=== PATIENT | female | born 1940 | race Asian ===

== ENCOUNTER → 2016-05-16 | Outpatient (CLI) | payer MEDICAID ==
[~2016-05-16] MED LIST: ASPIRIN E.C. 8181 MG PO; ATACAND 16M16 MG/TAB PO; B COMPLEX1 TA4 PO; BUFFERED ASPIR325 M2 PO; CATAPRES 0.1MG0.1 MG PO; CORDARONE200 MG/TAB PO; ELIQUIS 2.5 PO; HCTZ 25MG TAB25 MG PO; HCTZ12.5TAB PO; LASIX 40MG TABL40 MG PO; METHOTREXA2.5 MG/TAB PO; PRADAXA75 MG PO; VALIUM 2MG T2 MG/TAB PO; VALIUM 5MG T5 MG/TAB PO; VITAMIN D 50,1.25 MG PO; VITAMIN D31000 I1; XARELTO20 MG PO; ZEBETA 5MG5 MG PO; ZEBETA10 MG PO; ZOCOR 10MG10 MG PO
== END ==
LOC: COL.RAD 05-14 06:45
DX: Z53.9 Procedure and treatment not carried out, unspecified reason (principal)

== ENCOUNTER → 2016-05-23 | Outpatient (CLI) | payer MEDICAID ==
[~2016-05-23] VITALS: Ht 167.6 cm; Wt 84.5 kg
[2016-05-23 10:26] VITALS: BP 157/85; PULSE 61
[2016-05-23 11:15] VITALS: BP 163/79; PULSE 60
== END ==
LOC: COL.RAD 09:45
DX: D34 Benign neoplasm of thyroid gland (principal)
CPT/HCPCS: 13756

== ENCOUNTER 2017-01-05 22:02 | Observation (INO) | payer MEDICAID ==
[~2017-01-05] VITALS: Ht 172.7 cm; Wt 90.5 kg
[~2017-01-05 22:02] MED LIST changes: -B COMPLEX1 TA4 PO; +MULTI VITAMINS1 TAB PO
[2017-01-05] MEDS ORDERED: GLUCOSAMINE SU500 M2 PO (22:43)
[2017-01-05] MEDS ORDERED: CRESTOR 10MG10 MG PO (22:45)
[2017-01-05] MEDS ORDERED: ATACAND HCT 161 TAB PO (22:46)
[2017-01-05] MEDS ORDERED: NATURE'S BLE1000 MCG PO (22:47)
[2017-01-05] MEDS ORDERED: PACERONE100 MG PO (22:47)
[2017-01-05] MEDS ORDERED: IRON 27 MG PO (22:47)
[2017-01-05 23:16] LABS: INFLUENZA B NEGATIVE
[2017-01-05 23:22] LABS: BASO % 0.1 % (0.0-2.0); EOS % 0.3 % (0-4.0); GRAN # 7.4 (1.4-6.5); HEMATOCRIT 39.2 % (37.0-47.0); HEMOGLOBIN 12.7 g/dl (12.5-16.0); LYMPH # 1.4 (1.2-3.4); LYMPH % 15.2 % (20.0-51.0); MEAN CELL VOLUME 79 fl (80.0-100.0); MEAN CORPUSCULAR HEMOGLOBIN 26 pg (27.0-31.0); MEAN CORPUSCULAR HGB CONC 32 g/dl (33.0-37.0); MEAN PLATELET VOLUME 11.5 fl (7.4-10.4); MONO # 0.5 (0.1-0.6); MONO % 5.2 % (1.7-9.3); PLATELET COUNT 161 K/mm3 (130-400); RED BLOOD COUNT 4.95 M/mm3 (4.10-5.30); REDCELL DISTRIBUTION WIDTH-CV 15.5 % (11.5-14.5); WHITE BLOOD COUNT 9.4 K/mm3 (4.8-10.8)
[2017-01-05 23:37] LABS: PH 7 (5-8); SQUAMOUS EPITHELIAL 0-2 /hpf; URINE APPEARANCE Clear; URINE BACTERIA None Seen /hpf; URINE BILIRUBIN Negative (NEGATIVE); URINE BLOOD 1+ (NEGATIVE); URINE COLOR Colorless; URINE GLUCOSE Negative (NEGATIVE); URINE KETONE Trace (NEGATIVE); URINE UROBILINOGEN Negative (NEGATIVE); URINE WBC 0-2 /hpf
[2017-01-05 23:40] LABS: ALBUMIN 4.1 gm/dL (3.5-5.0); C-REACTIVE PROTEIN 4.4 mg/dL (0.0-0.9); CALCIUM 9.1 mg/dL (8.4-10.2); CREATININE, serum 0.8 mg/dL (0.52-1.25); POTASSIUM 3.4 mmol/L (3.4-5.0); TOTAL PROTEIN 7.8 gm/dL (6.4-8.2)
[2017-01-06 01:13] VITALS: BP 112/57; PULSE 94; TEMP 97.6
[2017-01-06] MEDS ORDERED: AMOXICILLIN 50500 MG PO (01:32)
[2017-01-06 03:36] VITALS: BP 110/53; PULSE 57; TEMP 97.3
[2017-01-06 08:26] VITALS: BP 132/43; PULSE 55; TEMP 98
[2017-01-06 11:21] VITALS: BP 103/48; PULSE 56; TEMP 98.5
== END 2017-01-06 12:28 | disposition home or self-care (01) ==
LOC: COL.ER 22:02 → MEDICAL 01-06 00:11
PROVIDERS: Family Medicine
DX: T36.0X5A Adverse effect of penicillins, initial encounter (principal); R11.2 Nausea with vomiting, unspecified; K04.7 Periapical abscess without sinus; I10 Essential (primary) hypertension; I48.2 Chronic atrial fibrillation; Z79.01 Long term (current) use of anticoagulants; E78.5 Hyperlipidemia, unspecified; R53.1 Weakness
CPT/HCPCS: G0378; G8987-GO; G8988-GO; J2405; J2550; J7030

== ENCOUNTER 2017-07-14 19:40 | Inpatient (IN) | payer MEDICAID ==
[~2017-07-14] VITALS: Ht 165.1 cm; Wt 86.5 kg
[~2017-07-14 19:40] MED LIST changes: +AMOXICILLIN 50500 MG PO; +ATACAND HCT 161 TAB PO; +CRESTOR 10MG10 MG PO; +GLUCOSAMINE SU500 M2 PO; +IRON 27 MG PO; +NATURE'S BLE1000 MCG PO; +PACERONE100 MG PO
[2017-07-15] VITALS (117 sets, daily range): BP systolic 125–149; BP diastolic 82–102; PULSE 70–110; TEMP 98.3–98.7; O2SAT 91–98
[2017-07-15 08:41] LABS: CALCIUM 9.5 mg/dL (8.4-10.2); CREATININE, serum 0.87 mg/dL (0.52-1.25); MAGNESIUM 1.7 mg/dL (1.6-2.3); POTASSIUM 3.9 mmol/L (3.4-5.0)
[2017-07-15] MEDS ORDERED: ATACAND 16M16 MG/TAB PO (09:22)
[2017-07-15] MEDS ORDERED: CARTIA XT240 MG PO (09:22)
[2017-07-15 22:04] LABS: CALCIUM 9.2 mg/dL (8.4-10.2); CREATININE, serum 1.01 mg/dL (0.52-1.25); MAGNESIUM 1.9 mg/dL (1.6-2.3); POTASSIUM 4.1 mmol/L (3.4-5.0)
[2017-07-16] VITALS: BP 141/98; PULSE 91; TEMP 99.5
[2017-07-16 04:00] VITALS: BP 164/105; PULSE 89; TEMP 98.8
[2017-07-16 06:21] LABS: CALCIUM 9.3 mg/dL (8.4-10.2); CREATININE, serum 0.96 mg/dL (0.52-1.25); MAGNESIUM 1.9 mg/dL (1.6-2.3); POTASSIUM 4.3 mmol/L (3.4-5.0)
[2017-07-16 08:00] VITALS: BP 153/91; PULSE 90; TEMP 97.8
[2017-07-16 11:54] VITALS: BP 162/105; PULSE 90; TEMP 98.2
[2017-07-16 15:44] VITALS: BP 154/88; PULSE 90; TEMP 98.4
[2017-07-16 19:30] VITALS: BP 168/90; PULSE 97
[2017-07-17 00:34] VITALS: BP 158/88; PULSE 90; TEMP 97.3
[2017-07-17 03:38] VITALS: BP 169/89; PULSE 85; TEMP 97.4
[2017-07-17 07:00] LABS: CALCIUM 9.4 mg/dL (8.4-10.2); CREATININE, serum 0.85 mg/dL (0.52-1.25); MAGNESIUM 1.8 mg/dL (1.6-2.3); POTASSIUM 3.8 mmol/L (3.4-5.0)
[2017-07-17 08:11] VITALS: BP 158/88; PULSE 86; TEMP 98
[2017-07-17 11:10] VITALS: BP 157/82; PULSE 93; TEMP 98.3
[2017-07-17 15:56] VITALS: BP 140/77; PULSE 92; TEMP 98.6
[2017-07-17 19:58] VITALS: BP 152/83; PULSE 97; TEMP 98.4
[2017-07-18 00:19] VITALS: BP 148/76; PULSE 85; TEMP 98.8
[2017-07-18 03:42] VITALS: BP 154/83; PULSE 82; TEMP 97.8
[2017-07-18 07:47] VITALS: BP 165/94; PULSE 93; TEMP 97.9
[2017-07-18 08:09] LABS: CALCIUM 9.6 mg/dL (8.4-10.2); CREATININE, serum 0.89 mg/dL (0.52-1.25); MAGNESIUM 1.8 mg/dL (1.6-2.3); POTASSIUM 4.2 mmol/L (3.4-5.0)
== END 2017-07-18 11:15 | disposition home or self-care (01) | DRG 310 ==
LOC: ICU 07-15 08:03 → MEDICAL 07-15 08:03
PROVIDERS: Internal Medicine Interventional Cardiology
DX: I48.91 Unspecified atrial fibrillation (principal); I10 Essential (primary) hypertension
CPT/HCPCS: J3475

== ENCOUNTER 2017-07-30 11:01 | Outpatient (CLI) | payer MEDICAID ==
[~2017-07-30] VITALS: Ht 165.2 cm; Wt 86.0 kg
[~2017-07-30 11:01] MED LIST changes: +CARTIA XT240 MG PO
[2017-07-30] MEDS ORDERED: TIKOSYN0.25 MG PO (11:59)
[2017-07-30 12:01] LABS: INR 1.8 (0.8-3.0); PROTHROMBIN TIME 21.5 SECONDS (9.7-12.8)
[2017-07-30 12:05] VITALS: BP 157/97; PULSE 98; TEMP 98.2
[2017-07-30 12:13] LABS: POTASSIUM 4.2 mmol/L (3.4-5.0)
[2017-07-30 12:48] LABS: THYROID STIMULATING HORMONE 0.571 uIU/mL (0.465-4.680)
[2017-07-30 13:00] VITALS: BP 138/74; PULSE 84
[2017-07-30 13:15] VITALS: BP 141/84; PULSE 84
[2017-07-30 13:30] VITALS: BP 144/86; PULSE 86
[2017-07-30 13:45] VITALS: BP 157/90; PULSE 86
== END 2017-07-30 14:00 | disposition home or self-care (01) ==
LOC: EUO 11:01
PROVIDERS: Internal Medicine Interventional Cardiology
DX: I48.3 Typical atrial flutter (principal); I48.91 Unspecified atrial fibrillation; Z90.710 Acquired absence of both cervix and uterus; J44.9 Chronic obstructive pulmonary disease, unspecified; E78.5 Hyperlipidemia, unspecified; I10 Essential (primary) hypertension
CPT/HCPCS: J0330; J2704

== ENCOUNTER 2019-08-01 12:26 | Emergency (ER) | payer MEDICAID ==
[~2019-08-01] VITALS: Ht 165.1 cm; Wt 82.7 kg
[~2019-08-01 12:26] MED LIST changes: +TIKOSYN0.25 MG PO
[2019-08-01 12:30] VITALS: TEMP 98.2
[2019-08-01] MEDS ORDERED: TOPROL XL 50MG50 MG PO (12:41)
[2019-08-01] MEDS ORDERED: LASIX 40MG TABL40 MG PO (12:41)
[2019-08-01] MEDS ORDERED: CRESTOR 10MG10 MG PO (12:42)
[2019-08-01 12:47] LABS: BASO % 0.2 % (0.0-2.0); EOS # 0.3 (0.0-0.7); EOS % 3.3 % (0-4.0); GRAN # 6.3 (1.4-6.5); GRAN % 64.6 % (42.2-75.2); HEMATOCRIT 41.6 % (37.0-47.0); HEMOGLOBIN 13.1 g/dl (12.5-16.0); LYMPH # 2.1 (1.2-3.4); LYMPH % 21.4 % (20.0-51.0); MEAN CELL VOLUME 81 fl (80.0-100.0); MEAN CORPUSCULAR HEMOGLOBIN 25 pg (27.0-31.0); MEAN CORPUSCULAR HGB CONC 32 g/dl (33.0-37.0); MEAN PLATELET VOLUME 11.4 fl (7.4-10.4); PLATELET COUNT 193 K/mm3 (130-400); RED BLOOD COUNT 5.17 M/mm3 (4.10-5.30); REDCELL DISTRIBUTION WIDTH-CV 15.8 % (11.5-14.5)
[2019-08-01 13:02] LABS: ALANINE AMINOTRANSFERASE 20 U/L (4-34); ALBUMIN 4.3 gm/dL (3.5-5.0); ALKALINE PHOSPHATASE 107 U/L (50-136); ANION GAP 10 mmol/L (7-16); AST,SGOT 30 U/L (15-37); BILIRUBIN,TOTAL 0.6 mg/dL (0.0-1.0); BLOOD UREA NITROGEN 13 mg/dL (7-17); C-REACTIVE PROTEIN 0.7 mg/dL (0.0-0.9); CALCIUM 9.4 mg/dL (8.4-10.2); CARBON DIOXIDE 25 mmol/L (22-30); CHLORIDE 97 mmol/L (98-107); CREATININE, serum 0.63 (0.52-1.25); GLUCOSE 117 mg/dL (74-106); POTASSIUM 3.9 mmol/L (3.4-5.0); SODIUM 132 mmol/L (137-145); TOTAL PROTEIN 8.1 gm/dL (6.4-8.2)
[2019-08-01 13:13] LABS: TROPONIN-I < 0.012 ng/mL (0.000-0.035)
[2019-08-01 14:47] LABS: INR 1.4 (0.8-3.0); PROTHROMBIN TIME 16.9 SECONDS (9.7-12.8)
[2019-08-01] MEDS ORDERED: APRESOLINE 25MG25 MG PO (16:06)
[2019-08-01 16:45] VITALS: BP 133/67; PULSE 57
[2019-08-01] MEDS ORDERED: PHENERGAN 25 TA25 MG PO (17:32)
== END 2019-08-01 17:40 | disposition home or self-care (01) ==
LOC: COL.ER 12:26
PROVIDERS: Emergency Medicine
DX: I10 Essential (primary) hypertension (principal); I48.91 Unspecified atrial fibrillation; E78.00 Pure hypercholesterolemia, unspecified; Z79.01 Long term (current) use of anticoagulants
CPT/HCPCS: J2060; J2405; J7050

== ENCOUNTER 2020-06-04 12:09 | Emergency (ER) | payer MEDICAID ==
[~2020-06-04] VITALS: Ht 165.1 cm; Wt 84.5 kg
[~2020-06-04 12:09] MED LIST changes: +APRESOLINE 25MG25 MG PO; +PHENERGAN 25 TA25 MG PO; +TOPROL XL 50MG50 MG PO
[2020-06-04 12:27] VITALS: TEMP 98.2
[2020-06-04 13:43] LABS: BASO % 0.2 % (0.0-2.0); EOS % 0.1 % (0-4.0); GRAN # 7.6 (1.4-6.5); GRAN % 78.1 % (42.2-75.2); HEMATOCRIT 43.1 % (37.0-47.0); HEMOGLOBIN 13.5 g/dl (12.5-16.0); LYMPH # 1.4 (1.2-3.4); MEAN CELL VOLUME 80 fl (80.0-100.0); MEAN CORPUSCULAR HEMOGLOBIN 25 pg (27.0-31.0); MEAN CORPUSCULAR HGB CONC 31 g/dl (33.0-37.0); MEAN PLATELET VOLUME 12.5 fl (7.4-10.4); MONO # 0.7 (0.1-0.6); PLATELET COUNT 182 K/mm3 (130-400); RED BLOOD COUNT 5.36 M/mm3 (4.10-5.30); REDCELL DISTRIBUTION WIDTH-CV 15.9 % (11.5-14.5)
[2020-06-04 13:53] LABS: ALBUMIN 4.1 gm/dL (3.5-5.0); BILIRUBIN,TOTAL 0.9 mg/dL (0.0-1.0); CALCIUM 9.4 mg/dL (8.4-10.2); CREATININE, serum 0.76 (0.52-1.25); POTASSIUM 3.9 mmol/L (3.4-5.0); TOTAL PROTEIN 7.9 gm/dL (6.4-8.2)
[2020-06-04] MEDS ORDERED: ZOVIRAX5% TP (14:44)
[2020-06-04 15:08] LABS: COLLECTION METHOD CLEAN CATCH
[2020-06-04 15:28] LABS: MUCOUS Present /lpf; PH 6 (5-8); SQUAMOUS EPITHELIAL 0-2 /hpf; URINE APPEARANCE Clear; URINE BACTERIA None Seen /hpf; URINE BILIRUBIN Negative (NEGATIVE); URINE BLOOD 1+ (NEGATIVE); URINE COLOR Yellow; URINE GLUCOSE Negative (NEGATIVE); URINE KETONE Negative (NEGATIVE); URINE LEUKOCYTE ESTERASE Negative (NEGATIVE); URINE NITRATE Negative (NEGATIVE); URINE PROTEIN(semi-quant) 1+ (NEGATIVE); URINE UROBILINOGEN Negative (NEGATIVE)
[2020-06-04 15:48] VITALS: BP 146/78; PULSE 82
== END 2020-06-04 15:50 | disposition home or self-care (01) ==
LOC: COL.ER 12:09
PROVIDERS: Family Medicine
DX: B00.2 Herpesviral gingivostomatitis and pharyngotonsillitis (principal); I10 Essential (primary) hypertension; I48.91 Unspecified atrial fibrillation; Z20.822 Contact with and (suspected) exposure to COVID-19; Z90.710 Acquired absence of both cervix and uterus; Z98.61 Coronary angioplasty status; Z79.01 Long term (current) use of anticoagulants
CPT/HCPCS: J0780; J7030

== ENCOUNTER 2021-08-21 13:10 | Emergency (ER) | payer MEDICAID ==
[~2021-08-21] VITALS: Ht 165.1 cm; Wt 86.4 kg
[~2021-08-21 13:10] MED LIST changes: +ZOVIRAX5% TP
[2021-08-21 13:30] VITALS: TEMP 98.5
[2021-08-21 15:17] VITALS: BP 140/61; PULSE 80
== END 2021-08-21 15:20 | disposition home or self-care (01) ==
LOC: COL.ER 13:10
DX: S09.90XA Unspecified injury of head, initial encounter (principal); M54.2 Cervicalgia; S05.12XA Contusion of eyeball and orbital tissues, left eye, initial encounter; S05.11XA Contusion of eyeball and orbital tissues, right eye, initial encounter; I48.91 Unspecified atrial fibrillation; Z79.01 Long term (current) use of anticoagulants; W18.30XA Fall on same level, unspecified, initial encounter; W22.8XXA Striking against or struck by other objects, initial encounter

== ENCOUNTER 2023-02-13 22:47 | Emergency (ER) | payer MEDICAID ==
[~2023-02-13] VITALS: Ht 172.7 cm; Wt 88.6 kg
[2023-02-13 23:07] VITALS: TEMP 98
[2023-02-13 23:37] LABS: BASO % 0.3 % (0.0-2.0); EOS # 0.2 K/mm3 (0.0-0.7); EOS % 1.7 % (0.0-4.0); GRAN # 5.6 K/mm3 (1.4-6.5); GRAN % 63.3 % (42.2-75.2); HEMATOCRIT 41.5 % (37.0-47.0); LYMPH # 2.1 K/mm3 (1.2-3.4); LYMPH % 24.2 % (20.0-51.0); MEAN CELL VOLUME 76 fl (80.0-100.0); MEAN CORPUSCULAR HEMOGLOBIN 24 pg (27-31); MEAN CORPUSCULAR HGB CONC 31 g/dl (33.0-37.0); MEAN PLATELET VOLUME 11.6 fl (7.4-10.4); MONO # 0.9 K/mm3 (0.1-0.6); MONO % 10.3 % (1.7-9.3); PLATELET COUNT 178 K/mm3 (130-400); RED BLOOD COUNT 5.43 M/mm3 (4.10-5.30); REDCELL DISTRIBUTION WIDTH-CV 19.1 % (11.5-14.5)
[2023-02-13 23:52] LABS: ALBUMIN 3.4 gm/dL (3.4-4.8); BILIRUBIN,TOTAL 0.4 mg/dL (0.2-1.2); CALCIUM 9.5 mg/dL (8.4-10.2); CREATININE, serum 0.79 mg/dL (0.57-1.11); POTASSIUM 4.4 mmol/L (3.5-4.5); TOTAL PROTEIN 7.6 gm/dL (6.2-8.1)
[2023-02-14 00:29] VITALS: BP 165/77; PULSE 64
== END 2023-02-14 00:38 | disposition home or self-care (01) ==
LOC: COL.ER 22:47
PROVIDERS: Family Medicine
DX: I10 Essential (primary) hypertension (principal)

== ENCOUNTER 2023-03-13 17:33 | Emergency (ER) | payer MEDICAID ==
[~2023-03-13] VITALS: Ht 168 cm; Wt 81.8 kg
[2023-03-13 17:38] VITALS: TEMP 97.8
[2023-03-13 18:49] VITALS: BP 131/85; PULSE 74
== END 2023-03-13 18:49 | disposition home or self-care (01) ==
LOC: COL.ER 17:33
DX: I48.20 Chronic atrial fibrillation, unspecified (principal)

== ENCOUNTER 2023-05-15 21:19 | Emergency (ER) | payer MEDICAID ==
[~2023-05-15] VITALS: Ht 172.7 cm; Wt 84.1 kg
[2023-05-15 21:23] VITALS: TEMP 98.7
[2023-05-15 22:21] LABS: BASO % 0.4 % (0.0-2.0); EOS # 0.5 K/mm3 (0.0-0.7); EOS % 4.8 % (0.0-4.0); GRAN # 5.9 K/mm3 (1.4-6.5); GRAN % 54.9 % (42.2-75.2); HEMATOCRIT 42.4 % (37.0-47.0); HEMOGLOBIN 13.5 g/dl (12.5-16.0); LYMPH % 28.3 % (20.0-51.0); MEAN CELL VOLUME 80 fl (80.0-100.0); MEAN CORPUSCULAR HEMOGLOBIN 26 pg (27-31); MEAN CORPUSCULAR HGB CONC 32 g/dl (33.0-37.0); MEAN PLATELET VOLUME 11.9 fl (7.4-10.4); MONO # 1.2 K/mm3 (0.1-0.6); MONO % 11.1 % (1.7-9.3); PLATELET COUNT 206 K/mm3 (130-400); RED BLOOD COUNT 5.29 M/mm3 (4.10-5.30); REDCELL DISTRIBUTION WIDTH-CV 18.3 % (11.5-14.5)
[2023-05-15 22:37] LABS: ALANINE AMINOTRANSFERASE 11 U/L (0-55); ALBUMIN 3.5 gm/dL (3.4-4.8); ANION GAP 10 mmol/L (7-16); AST,SGOT 16 U/L (5-34); BILIRUBIN,TOTAL 0.4 mg/dL (0.2-1.2); BLOOD UREA NITROGEN 35 mg/dL (10-20); CARBON DIOXIDE 19 mmol/L (23-31); CHLORIDE 104 mmol/L (98-107); CREATININE, serum 1.39 mg/dL (0.57-1.11); GLUCOSE 116 mg/dL (70-99); MAGNESIUM 1.9 mg/dL (1.6-2.6); POTASSIUM 5.2 mmol/L (3.5-4.5); SODIUM 133 mmol/L (136-145); TOTAL PROTEIN 7.6 gm/dL (6.2-8.1)
[2023-05-15 22:45] LABS: TROPONIN-I < 0.010 ng/mL (0.00-0.033)
[2023-05-15 22:51] LABS: ALKALINE PHOSPHATASE 75 U/L (40-150)
[2023-05-15 23:47] VITALS: BP 125/63; PULSE 52
== END 2023-05-15 23:47 | disposition home or self-care (01) ==
LOC: COL.ER 21:19
PROVIDERS: Personal Emergency Response Attendant
DX: R00.1 Bradycardia, unspecified (principal); N28.9 Disorder of kidney and ureter, unspecified; I10 Essential (primary) hypertension; I48.91 Unspecified atrial fibrillation; Z79.899 Other long term (current) drug therapy; Z79.01 Long term (current) use of anticoagulants

== ENCOUNTER 2024-03-09 19:39 | Emergency (ER) | payer MEDICAID ==
[~2024-03-09] VITALS: Ht 172.7 cm; Wt 90.9 kg
[2024-03-09 19:46] VITALS: TEMP 98.4
[2024-03-09 20:13] LABS: HEMATOCRIT 48.6 % (37.0-47.0); HEMOGLOBIN 15.6 g/dl (12.5-16.0); MEAN CELL VOLUME 82 fl (80.0-100.0); MEAN CORPUSCULAR HEMOGLOBIN 26 pg (27-31); MEAN CORPUSCULAR HGB CONC 32 g/dl (33.0-37.0); MEAN PLATELET VOLUME 11.4 fl (7.4-10.4); PLATELET COUNT 210 K/mm3 (130-400); RED BLOOD COUNT 5.95 M/mm3 (4.10-5.30); REDCELL DISTRIBUTION WIDTH-CV 17.3 % (11.5-14.5)
[2024-03-09] MEDS ORDERED: dexAMETHasone 10 MG/ML VIAL IV ONE (20:15)
[2024-03-09] MEDS ORDERED: HYDROcodone/Chlorphen Polst ER Susp 10-8 MG/5 ML UD PO ONE (20:15)
[2024-03-09] MEDS ORDERED: Albuterol/Ipratropium 3 MG-0.5 MG/3 ML Neb Soln IH SCH (20:15)
[2024-03-09] MEDS ORDERED: Magnesium Sulfate 4% 50 ML IV ONE (20:15)
[2024-03-09 20:25] LABS: ALBUMIN 3.4 g/dL (3.4-4.8); BILIRUBIN,TOTAL 0.5 mg/dL (0.2-1.2); CALCIUM 9.1 mg/dL (8.4-10.2); CREATININE, serum 0.86 mg/dL (0.57-1.11); MAGNESIUM 1.9 mg/dL (1.6-2.6); POTASSIUM 3.9 mEq/L (3.5-4.5); TOTAL PROTEIN 7.6 g/dl (6.2-8.1)
[2024-03-09 20:42] LABS: ANISOCYTOSIS 1+; BAND 5 % (0-10); LYMPHOCYTE 18 % (20.0-51.0); NEUTROPHILS 66 % (42.0-75.2); PLATELET ESTIMATE NORMAL (NORMAL)
[2024-03-09] MEDS ORDERED: cefTRIAXone 1 G in Water For Injection,Sterile 10 ML IV ONE (21:15)
[2024-03-09] MEDS ORDERED: Azithromycin 500 MG in NS 250 ML IV ONE (21:15)
[2024-03-09] MEDS ORDERED: ZITHROMAX Z PA250 MG PO (21:27)
[2024-03-09] MEDS ORDERED: CEFTIN500 MG PO (21:27)
[2024-03-09] MEDS ORDERED: Albuterol 90 MCG/PUFF 8 GM MDI IH ONE (21:45)
[2024-03-09] MEDS ORDERED: Albuterol/Ipratropium 3 MG-0.5 MG/3 ML Neb Soln IH ONE (22:45)
[2024-03-09 23:09] VITALS: BP 110/58; PULSE 75
[2024-03-09] MEDS ORDERED: Azithromycin 250 MG TAB PO ONE (23:45)
[2024-03-09] MEDS ORDERED: Cefuroxime 250 MG TAB PO ONE (23:45)
[2024-03-11] MEDS ORDERED: APRESOLINE 25MG25 MG PO (00:21)
[2024-03-11] MEDS ORDERED: NATURAL MAGNES200 MG PO (00:23)
[2024-03-11] MEDS ORDERED: VITAMIND3 5000 PO (00:24)
[2024-03-11] MEDS ORDERED: VITAMINC1000TA PO (00:24)
== END 2024-03-10 00:25 | disposition home or self-care (01) ==
LOC: COL.ER 19:39
PROVIDERS: Emergency Medicine
DX: J40 Bronchitis, not specified as acute or chronic (principal); J18.9 Pneumonia, unspecified organism; Z95.9 Presence of cardiac and vascular implant and graft, unspecified
CPT/HCPCS: J0456; J0696; J1100; J3475; J7050

== ENCOUNTER 2024-03-10 21:06 | Inpatient (IN) | payer MEDICAID ==
[~2024-03-10] VITALS: Ht 152.4 cm; Wt 94.7 kg
[~2024-03-10 21:06] MED LIST changes: +CEFTIN500 MG PO; +ZITHROMAX Z PA250 MG PO
[2024-03-10] MEDS ORDERED: Albuterol/Ipratropium 3 MG-0.5 MG/3 ML Neb Soln IH SCH ×2 (21:30→21:45)
[2024-03-10 22:04] LABS: HEMATOCRIT 45.6 % (37.0-47.0); HEMOGLOBIN 14.9 g/dl (12.5-16.0); MEAN CELL VOLUME 82 fl (80.0-100.0); MEAN CORPUSCULAR HEMOGLOBIN 27 pg (27-31); MEAN CORPUSCULAR HGB CONC 33 g/dl (33.0-37.0); MEAN PLATELET VOLUME 11.9 fl (7.4-10.4); PLATELET COUNT 205 K/mm3 (130-400); RED BLOOD COUNT 5.58 M/mm3 (4.10-5.30); REDCELL DISTRIBUTION WIDTH-CV 17.2 % (11.5-14.5)
[2024-03-10 22:13] LABS: ALBUMIN 3.3 g/dL (3.4-4.8); BILIRUBIN,TOTAL 0.4 mg/dL (0.2-1.2); CREATININE, serum 0.95 mg/dL (0.57-1.11); POTASSIUM 4.3 mEq/L (3.5-4.5); TOTAL PROTEIN 7.3 g/dl (6.2-8.1)
[2024-03-10 22:29] LABS: ANISOCYTOSIS 1+; BAND 9 % (0-10); LYMPHOCYTE 6 % (20.0-51.0); NEUTROPHILS 71 % (42.0-75.2); PLATELET ESTIMATE NORMAL (NORMAL)
[2024-03-10 22:39] LABS: COLLECTION METHOD CLEAN CATCH
[2024-03-10] MEDS ORDERED: methylPREDNISolone Sod Succ 125 MG/2 ML VIAL IV ONE (22:45)
[2024-03-10 22:50] LABS: URINE APPEARANCE CLEAR (CLEAR/HAZY); URINE BLOOD NEGATIVE (NEGATIVE); URINE COLOR YELLOW (YELLOW); URINE GLUCOSE NEGATIVE (NEGATIVE); URINE KETONE NEGATIVE (NEGATIVE); URINE NITRATE NEGATIVE (NEGATIVE); URINE PROTEIN(semi-quant) 1+ (NEGATIVE); URINE UROBILINOGEN 0.2 E.U/dL (0.2-1.0)
[2024-03-10] MEDS ORDERED: NS 50 ML IV ONE (23:05)
[2024-03-10] MEDS ORDERED: Iohexol 300 - 100 ML VIAL IV ONE (23:05)
[2024-03-11] VITALS (12 sets, daily range): BP systolic 135–167; BP diastolic 61–89; PULSE 61–90; TEMP 97.6–98.5
[2024-03-11] MEDS ORDERED: cefTRIAXone 2 G in Water For Injection,Sterile 20 ML IV ONE (00:15)
[2024-03-11] MEDS ORDERED: APRESOLINE 25MG25 MG PO (00:21)
[2024-03-11] MEDS ORDERED: NATURAL MAGNES200 MG PO (00:23)
[2024-03-11] MEDS ORDERED: VITAMIND3 5000 PO (00:24)
[2024-03-11] MEDS ORDERED: VITAMINC1000TA PO (00:24)
[2024-03-11] MEDS ORDERED: Albuterol/Ipratropium 3 MG-0.5 MG/3 ML Neb Soln IH PRN (00:45)
[2024-03-11] MEDS ORDERED: Acetaminophen 325 MG TAB PO PRN (00:45)
[2024-03-11] MEDS ORDERED: NS 1,000 ML IV SCH (00:45)
[2024-03-11] MEDS ORDERED: Polyethylene Glycol 3350 17 GM PDS PO PRN (00:45)
[2024-03-11] MEDS ORDERED: Albuterol/Ipratropium 3 MG-0.5 MG/3 ML Neb Soln IH SCH (02:00)
[2024-03-11] MEDS ORDERED: guaiFENesin/Dextromethorphan Oral Soln 200-20 MG/10 ML UD PO PRN (02:00)
[2024-03-11] MEDS ORDERED: Benzonatate 100 MG CAP PO SCH (02:00)
[2024-03-11] MEDS ORDERED: guaiFENesin/Dextromethorphan Oral Soln 200-20 MG/10 ML UD PO ONE (02:00)
--- NOTE | 2024-03-11 03:07 | NUR ---
patient arrived from ED around 0150, alert and oriented x4, son at bedside assisting with translation, pt upper sorbian speaking. denies chest pain/discomfort and reports feeling short of breath, on 2L per NC. IV in RAC is patent, site is CDI with NS running at 75 ml/hr. dry flaking on bottom of feet/heals, no remarkable skin findings otherswise, CDI. droplet/contact precautions in place, fall precautions in place, call light within reach. pt and family have no further needs, questions, or concerns at this time.
[2024-03-11 06:17] LABS: HEMATOCRIT 40.8 % (37.0-47.0); HEMOGLOBIN 13.4 g/dl (12.5-16.0); MEAN CELL VOLUME 81 fl (80.0-100.0); MEAN CORPUSCULAR HEMOGLOBIN 27 pg (27-31); MEAN CORPUSCULAR HGB CONC 33 g/dl (33.0-37.0); MEAN PLATELET VOLUME 11.7 fl (7.4-10.4); PLATELET COUNT 177 K/mm3 (130-400); RED BLOOD COUNT 5.04 M/mm3 (4.10-5.30); REDCELL DISTRIBUTION WIDTH-CV 16.9 % (11.5-14.5)
--- NOTE | 2024-03-11 06:22 | NUR ---
patient up to bathroom and back in bed x1 assist. pt has no further needs, questions or concerns at this time
[2024-03-11 06:32] LABS: CALCIUM 8.3 mg/dL (8.4-10.2); CREATININE, serum 0.78 mg/dL (0.57-1.11); POTASSIUM 4.5 mEq/L (3.5-4.5)
[2024-03-11] MEDS ORDERED: Formoterol Neb Soln 20 MCG/2 ML UD IH SCH (07:00)
--- NOTE | 2024-03-11 07:00 | NUR ---
BEDSIDE SHIFT REPORT RECIEVED AT THIS TIME. PT RESTING IN BED. SON AT BEDSIDE TO TRANSLATE.
[2024-03-11 07:47] LABS: ANISOCYTOSIS 1+; BAND 10 % (0-10); LYMPHOCYTE 6 % (20.0-51.0); METAMYELOCYTE 2 % (0-0); NEUTROPHILS 80 % (42.0-75.2); PLATELET ESTIMATE NORMAL (NORMAL)
[2024-03-11] MEDS ORDERED: hydrALAZINE 25 MG TAB PO SCH (08:00)
--- NOTE | 2024-03-11 08:19 | NUR ---
MAX FROM TELE NOTFIED THIS NURSE THAT PT IS IN AFIB WITH RVR.
--- NOTE | 2024-03-11 08:26 | NUR ---
THIS NURSE NOTIFIED TAWNY GOULD AND CONSTANZA RAMON THAT PT IS IN AFIB WITH RVR. ORDERS TO ADMINISTER SCHEDULED MEDICATIONS.
--- NOTE | 2024-03-11 08:51 | NUR ---
SHIFT ASSESSMENT COMPLETED AT THIS TIME. PT A&OX4. PT RESTINGIN BED UUOPON ENTRSNCE. DROPLET/CONTSCT PRECASUTIONS IN PLACE. PT DENIES PAIN, SOB AND NAUSEA AT THIS TIME. TELE IN PLACE. PT COMPLAINING OF HEART PALPITATIONS. PT IN AFIB WITH RVR. THIS NURSE WAS ADMINISTERING SCHEDULED MEDICATIONS, PT'S SON GAVE PT AT HOME MEDS. THIS NURSE INSTRUCTED PT SPIT OUT MEDS AND EDUCATED ON NOT TAKING ANY MEDS IN THE HOSPITAL THAT ARE NOT GIVEN BY STAFF. SON AND PT VOICE UNDERSTANDING. SCHEDULED MEDICATIONS ADMINISTERED WITHOUT COMPLICATIONS. IVF INFUSING IN RIGHT AC. PT ON 2L OF OXYGEN VIA NASAL CANULA. PT'S HR- 138. SON AT BEDSIDE. CALL LIGHT WITHIN REACH. NO FURTHER NEEDS AT THIS TIME.
[2024-03-11] MEDS ORDERED: Dofetilide 250 MCG CAP PO SCH (09:00)
[2024-03-11] MEDS ORDERED: dilTIAZem CD (24-HR) 240 MG CAP PO SCH (09:00)
[2024-03-11] MEDS ORDERED: Cholecalciferol (Vit D3) 125 MCG (5,000 Units) Capsule PO SCH (09:00)
[2024-03-11] MEDS ORDERED: dexAMETHasone 10 MG/ML VIAL IV SCH (09:00)
[2024-03-11] MEDS ORDERED: Ascorbic Acid 500 MG TAB PO SCH (09:00)
[2024-03-11] MEDS ORDERED: Azithromycin 250 MG TAB PO SCH (09:00)
--- NOTE | 2024-03-11 15:52 | NUR ---
Chipper Operator met with patient to discuss discharge planning. Patient's son, Arian (ph#[phone]) is at bedside and assisted in answering intake questions. Patient lives alone in [place] and sees Dr. Canada for primary care. Patient gets medications from [facility] on [address] and has a walker that she uses as needed. Patient does not normally use oxygen, but currently is wearing it. Per son, patient is able to drive and independent with ADLS. Patient does not have DPOA-HC. Patient is and has three sons. Patient's middle son is on his way from [place], [place] and the youngest son lives in [place]. SW met with the multidicisplinary team and all are in agreement with discharge plan for home. Discharge Plan: Home
[2024-03-11] MEDS ORDERED: Budesonide Neb Susp 0.5 MG/2 ML AMP IH SCH (19:00)
[2024-03-11] MEDS ORDERED: Rosuvastatin 10 MG **** subs to Atorvastatin 20 MG PO SCH (21:00)
[2024-03-11] MEDS ORDERED: Atorvastatin 20 MG TAB PO SCH (21:00)
[2024-03-11] MEDS ORDERED: cefTRIAXone 2 G in Water For Injection,Sterile 20 ML IV SCH (21:00)
[2024-03-12] VITALS (13 sets, daily range): BP systolic 131–160; BP diastolic 61–77; PULSE 61–69; TEMP 97.7–98
[2024-03-12 06:20] LABS: BASO % 0.2 % (0.0-2.0); GRAN # 8.8 K/mm3 (1.4-6.5); GRAN % 84.5 % (42.2-75.2); HEMATOCRIT 41.8 % (37.0-47.0); HEMOGLOBIN 13.4 g/dl (12.5-16.0); LYMPH # 0.9 K/mm3 (1.2-3.4); MEAN CELL VOLUME 82 fl (80.0-100.0); MEAN CORPUSCULAR HEMOGLOBIN 26 pg (27-31); MEAN CORPUSCULAR HGB CONC 32 g/dl (33.0-37.0); MEAN PLATELET VOLUME 11.9 fl (7.4-10.4); MONO # 0.6 K/mm3 (0.1-0.6); MONO % 5.7 % (1.7-9.3); PLATELET COUNT 187 K/mm3 (130-400); RED BLOOD COUNT 5.07 M/mm3 (4.10-5.30); REDCELL DISTRIBUTION WIDTH-CV 17.5 % (11.5-14.5)
[2024-03-12 06:38] LABS: CALCIUM 8.5 mg/dL (8.4-10.2); CREATININE, serum 0.81 mg/dL (0.57-1.11); POTASSIUM 4.4 mEq/L (3.5-4.5)
--- NOTE | 2024-03-12 06:55 | NUR ---
PT SITTING UP IN THE CHAIR. SON BEDSIDE. PT ABLE TO SPEAK BASIC TURKMEN AND CONVERSE. PT IS ON 1L NC. PT IS SR ON TELE. PT IS AXOX4. PT HAS CALL LIGHT AND INSTRUCTED TO CALL WITH ALL NEEDS.
[2024-03-12] MEDS ORDERED: predniSONE 20 MG TAB PO SCH (09:00)
--- NOTE | 2024-03-12 12:58 | NUR ---
Data: Patient's visitor declined spiritual care visit offered during Coal [employer]her rounds. Assessment: None at this time. Plan of Care: Chaplains will remain available as needed/requested while Patient is admitted to this hospital.
[2024-03-13 03:50] VITALS: BP 154/62; PULSE 61; TEMP 98.7
[2024-03-13 03:55] VITALS: BP_SYST 154
[2024-03-13 08:28] VITALS: BP 151/82; PULSE 60; TEMP 97.6
[2024-03-13 09:16] VITALS: BP_SYST 151
--- NOTE | 2024-03-13 09:29 | NUR ---
Patient coming out from restroom, Alert and oriented x4, RA sat 94%. Still with productive cough. Now on chair. Eating and drinking well. Assessment completed, meds given. States she is a little constipated, but just had a BM. No further needs at this time. Call light within reach.
[2024-03-13 12:16] VITALS: BP 136/72; PULSE 70; TEMP 98.1
[2024-03-13] MEDS ORDERED: PREDNISONE20 MG PO (12:58)
[2024-03-13] MEDS ORDERED: FLOVENT 110MCG7.9 GM IH (12:59)
[2024-03-13] MEDS ORDERED: TESSALON P100 MG/CAP PO (13:00)
[2024-03-13 13:02] VITALS: BP_SYST 136
--- NOTE | 2024-03-13 14:39 | NUR ---
Patient and son were provided with discharg information, all questions answered. IV access and telemetry were discontinued.
== END 2024-03-13 15:00 | disposition home or self-care (01) | DRG 189 ==
LOC: COL.ER 21:06 → MEDICAL 03-11 00:08 → COL.ER 03-11 00:08 → MEDICAL 03-11 01:32
PROVIDERS: Emergency Medicine; Nurse Practitioner Family; ADMIT Internal Medicine
DX: J96.01 Acute respiratory failure with hypoxia (principal); B97.4 Respiratory syncytial virus as the cause of diseases classified elsewhere; D86.9 Sarcoidosis, unspecified; R91.1 Solitary pulmonary nodule; I48.0 Paroxysmal atrial fibrillation; Z79.01 Long term (current) use of anticoagulants; I12.9 Hypertensive chronic kidney disease with stage 1 through stage 4 chronic kidney disease, or unspecified chronic kidney disease; E78.5 Hyperlipidemia, unspecified; N18.2 Chronic kidney disease, stage 2 (mild)
CPT/HCPCS: J0696; J1100; J2919; J7030; J7512; Q9967